=== PATIENT | male | born 1960 | race Caucasian/White ===

== ENCOUNTER 2017-10-09 17:42 | Inpatient (IN) | payer MEDICARE ==
[~2017-10-09] VITALS: Ht 177.8 cm; Wt 83.1 kg
[2017-10-09] MEDS ORDERED: METF500T4 PO (17:56)
[2017-10-09] MEDS ORDERED: OXYC10TA6 PO (17:56)
[2017-10-09] MEDS ORDERED: SODIUM CHLORIDE FLUSH 10ML SYR IVF ONE (18:30)
[2017-10-09] MEDS ORDERED: NITROGLYCERIN SINGLE TAB 0.4 MG SL PRN (18:30)
[2017-10-09 18:51] LABS: BASOPHILS # (AUTO) 0.05 x10^3/uL (0-0.1); BASOPHILS % (AUTO) 1 % (0-1); EOSINOPHILS # (AUTO) 0.09 x10^3/uL (0-0.4); EOSINOPHILS % (AUTO) 1 % (1-7); LYMPHOCYTES # (AUTO) 2.42 x10^3/uL (1-3.4); LYMPHOCYTES % (AUTO) 34 % (22-44); MD NO; MEAN CORPUSCULAR HGB CONC 34.6 g/dL (33.2-36.2); MEAN CORPUSCULAR VOLUME 86.6 fL (81-97); MEAN PLATELET VOLUME 7.8 fL (7.4-10.4); MONOCYTES # (AUTO) 0.57 x10^3/uL (0.2-0.8); MONOCYTES % (AUTO) 8 % (2-9); NEUTROPHILS # (AUTO) 4.02 x10^3/uL (1.8-6.8); NEUTROPHILS % (AUTO) 56 % (42-75); PLATELET COUNT 265 x10^3/uL (130-400); RED BLOOD COUNT 3.36 x10^6/uL (4.38-5.82); RED CELL DISTRIBUTION WIDTH 16.8 % (9.4-14.8)
[2017-10-09 18:58] LABS: ALANINE AMINOTRANSFERASE 38 U/L (12-78); ALBUMIN 3.7 g/dL (3.4-5.0); ANION GAP 16 mmol/L (5-15); CALCIUM 8.2 mg/dL (8.5-10.1); CHLORIDE 99 mmol/L (98-107)
[2017-10-09] MEDS ORDERED: ACETAMINOPHEN 325 MG TABLET ONE (19:00)
[2017-10-09] MEDS ORDERED: ACETAMINOPHEN 325 MG TABLET PO ONE (19:00)
[2017-10-09 19:03] LABS: ALKALINE PHOSPHATASE 115 U/L (45-117); BILIRUBIN,TOTAL 0.5 mg/dL (0.2-1.0); TOTAL PROTEIN 7.5 g/dL (6.4-8.2)
[2017-10-09 19:10] LABS: D-DIMER 1.84 ug/mlFEU (0.00-0.52); INTERNATIONAL NORMALIZED RATIO 1.12 (0.93-1.1); PROTHROMBIN TIME 11.6 Seconds (9.6-11.5)
[2017-10-09] MEDS ORDERED: SODIUM CHLORIDE FLUSH 10ML SYR IVF PRN (20:30)
[2017-10-09] MEDS ORDERED: OMNIPAQUE 350 MG/ML, 100ML BOTTLE ONE (20:49)
[2017-10-09] MEDS: SODIUM CHLORIDE 0.9% 1,000 ML IV SCH (21:06)
[2017-10-09] MEDS ORDERED: ONDANSETRON 2MG/ML, 2ML IVPush PRN (21:30)
[2017-10-09] MEDS ORDERED: TRAZODONE 50MG TABLET PO PRN (21:30)
[2017-10-09] MEDS ORDERED: hydrALAzine 20 MG/ML, 1ML IVPush PRN (21:30)
[2017-10-09] MEDS ORDERED: ACETAMINOPHEN 325 MG TABLET PO PRN (21:30)
[2017-10-09] MEDS: SODIUM BICARBONATE 8.4% 100 MEQ in DEXTROSE 5% 1,000 ML IV SCH (22:29)
[2017-10-09] MEDS ORDERED: morphine SULFATE/PF 0.5 MG/ML, 10ML IV PRN (22:30)
[2017-10-09] MEDS ORDERED: morphine SULFATE 10 MG/ML, 1ML ONE (22:34)
[2017-10-09] MEDS ORDERED: MORPHINE SULFATE 4 MG/ML, 1ML IVPush PRN (23:00)
[2017-10-09] MEDS ORDERED: LORazepam 2 MG/ML, 1ML IVPush PRN (23:00)
[2017-10-09] MEDS ORDERED: THIAMINE 100 MG, MVI ADULT 10 ML, FOLIC ACID 1 MG in D5%-0.9% NACL 1,000 ML IV SCH (23:00)
[2017-10-09] MEDS ORDERED: MORPHINE SULFATE 4 MG/ML, 1ML IVPush ONE (23:00)
[2017-10-09 23:23] LABS: TROPONIN I < 0.015 ng/mL (0.000-0.045)
[2017-10-10 00:02] VITALS: BP 133/77
[2017-10-10] MEDS: MORPHINE SULFATE 4 MG/ML, 1ML IVPush PRN ×2 (00:27→01:16)
[2017-10-10 01:45] LABS: AMPHETAMINE SCREEN, URINE Negative (Negative); BARBITURATE SCREEN, URINE Negative (Negative); BENZODIAZEPINE SCREEN, URINE Negative (Negative); CANNABINOID SCREEN, URINE Negative (Negative); COCAINE SCREEN, URINE Negative (Negative); METHADONE SCREEN, URINE Negative (Negative); OPIATE SCREEN, URINE Positive (Negative)
[2017-10-10] MEDS ORDERED: LORazepam 1MG TABLET PO PRN ×3 (02:00)
[2017-10-10] MEDS ORDERED: LORazepam 0.5MG TABLET PO PRN (02:00)
[2017-10-10] MEDS ORDERED: MORPHINE SULFATE 4 MG/ML, 1ML IVPush PRN (02:00)
[2017-10-10] MEDS ORDERED: LORazepam 2 MG/ML, 1ML IV PRN ×2 (02:00)
[2017-10-10] MEDS: LORazepam 2 MG/ML, 1ML IV PRN ×4 (02:01→18:19)
[2017-10-10 05:20] LABS: TRIGLYCERIDES 53 mg/dL (50-200); TROPONIN I < 0.015 ng/mL (0.000-0.045)
[2017-10-10] MEDS: SODIUM CHLORIDE 0.9% 1,000 ML IV SCH ×2 (05:25→09:15)
[2017-10-10] MEDS: SODIUM BICARBONATE 8.4% 100 MEQ in DEXTROSE 5% 1,000 ML IV SCH (05:26)
[2017-10-10 05:50] LABS: HEMOGLOBIN A1C 5.5 % (4.2-6.3)
[2017-10-10 07:27] VITALS: BP 130/79
[2017-10-10 11:43] VITALS: BP 146/80
[2017-10-10] MEDS: CHLORDIAZEPOXIDE 25 MG CAPSULE PO SCH ×3 (13:55→20:56)
[2017-10-10 16:49] VITALS: BP 126/77
[2017-10-10 19:26] VITALS: BP 127/66
[2017-10-10] MEDS ORDERED: methylPREDNISolone SOD SUCC 125 MG/2 ML IVPush ONE (20:30)
[2017-10-10] MEDS ORDERED: KETOROLAC 30 MG/1 ML IVPush ONE (20:30)
[2017-10-10] MEDS: FAMOTIDINE 20 MG/2 ML IVPush SCH (20:56)
[2017-10-10] MEDS: ACETAMINOPHEN 500 MG TABLET PO SCH (20:56)
[2017-10-10] MEDS: D5%-LACTATED RINGERS 1,000 ML IV SCH (21:47)
[2017-10-11 00:41] VITALS: BP 148/83
[2017-10-11] MEDS: LORazepam 2 MG/ML, 1ML IV PRN ×6 (02:44→23:37)
[2017-10-11] MEDS: ACETAMINOPHEN 500 MG TABLET PO SCH ×3 (04:59→23:09)
[2017-10-11] MEDS: D5%-LACTATED RINGERS 1,000 ML IV SCH ×2 (04:59→20:06)
[2017-10-11 07:39] VITALS: BP 142/80
[2017-10-11 07:48] LABS: ALBUMIN 3.2 g/dL (3.4-5.0); ANION GAP 11 mmol/L (5-15); CALCIUM 7.6 mg/dL (8.5-10.1); CHLORIDE 100 mmol/L (98-107)
[2017-10-11 07:51] LABS: ALANINE AMINOTRANSFERASE 30 U/L (12-78); ALKALINE PHOSPHATASE 106 U/L (45-117); BILIRUBIN,TOTAL 0.9 mg/dL (0.2-1.0); CREATININE 0.72 mg/dL (0.7-1.3); TOTAL PROTEIN 7.1 g/dL (6.4-8.2)
[2017-10-11] MEDS ORDERED: REGADENOSON 0.4 MG/5 ML SYRINGE ONE (08:17)
[2017-10-11] MEDS: FAMOTIDINE 20 MG/2 ML IVPush SCH ×2 (08:29→23:11)
[2017-10-11] MEDS: CHLORDIAZEPOXIDE 25 MG CAPSULE PO SCH ×3 (08:38→23:08)
[2017-10-11] MEDS: LORazepam 1MG TABLET PO PRN ×2 (11:19→16:45)
[2017-10-11] MEDS ORDERED: MAGNESIUM SULFATE PMX 4GM/100M 100 ML IV ONE (12:00)
[2017-10-11] MEDS: POTASSIUM CHLORIDE 20 MEQ TAB.ER.PRT PO SCH ×2 (12:27→16:51)
[2017-10-11 12:46] VITALS: BP 156/93
[2017-10-11 16:37] LABS: CLOSTRIDIUM DIFFICILE ANTIGEN NEGATIVE; CLOSTRIDIUM DIFFICILE TOXIN NEGATIVE (Negative)
[2017-10-11 20:41] VITALS: BP 148/77
[2017-10-11] MEDS: MAGNESIUM CHLORIDE 64 MG TABLET.DR PO SCH (23:09)
[2017-10-12] MEDS: LORazepam 2 MG/ML, 1ML IV PRN ×5 (00:54→06:49)
[2017-10-12 02:47] VITALS: BP 128/78
[2017-10-12] MEDS: D5%-LACTATED RINGERS 1,000 ML IV SCH ×2 (04:02→14:56)
[2017-10-12 06:40] VITALS: BP 132/68
[2017-10-12] MEDS ORDERED: ZIPRASIDONE 20 MG INJ IM ONE (07:30)
[2017-10-12] MEDS: MAGNESIUM CHLORIDE 64 MG TABLET.DR PO SCH ×2 (07:58→21:52)
[2017-10-12] MEDS: CHLORDIAZEPOXIDE 25 MG CAPSULE PO SCH ×3 (07:58→21:51)
[2017-10-12] MEDS: FAMOTIDINE 20 MG/2 ML IVPush SCH (07:58)
[2017-10-12] MEDS: ACETAMINOPHEN 500 MG TABLET PO SCH ×2 (07:59→18:03)
[2017-10-12] MEDS ORDERED: CHLORDIAZEPOXIDE 25 MG CAPSULE PO PRN ×3 (08:00)
[2017-10-12] MEDS ORDERED: CHLORDIAZEPOXIDE 10 MG CAPSULE PO PRN (08:00)
[2017-10-12] MEDS ORDERED: LORazepam 2 MG/ML, 1ML IV PRN (08:00)
[2017-10-12] MEDS: RIFAXIMIN 550 MG TABLET PO SCH ×2 (09:00→21:51)
[2017-10-12 09:32] LABS: ANION GAP 11 mmol/L (5-15); CALCIUM 8.3 mg/dL (8.5-10.1); CHLORIDE 103 mmol/L (98-107); CREATININE 0.88 mg/dL (0.7-1.3)
[2017-10-12 14:22] VITALS: BP 100/65
[2017-10-12 21:27] VITALS: BP 146/88
[2017-10-12] MEDS: FAMOTIDINE 20 MG TABLET PO SCH (21:51)
[2017-10-12 23:30] VITALS: BP 101/62
[2017-10-13] MEDS: ACETAMINOPHEN 500 MG TABLET PO SCH ×4 (00:16→16:23)
[2017-10-13] MEDS: D5%-LACTATED RINGERS 1,000 ML IV SCH ×3 (00:16→20:33)
[2017-10-13 02:02] VITALS: BP 108/68
[2017-10-13 07:55] LABS: ALANINE AMINOTRANSFERASE 26 U/L (12-78); ALBUMIN 3.3 g/dL (3.4-5.0); ANION GAP 7 mmol/L (5-15); CALCIUM 8.4 mg/dL (8.5-10.1); CHLORIDE 106 mmol/L (98-107)
[2017-10-13 07:58] LABS: ALKALINE PHOSPHATASE 105 U/L (45-117); BILIRUBIN,TOTAL 0.5 mg/dL (0.2-1.0); TOTAL PROTEIN 7.3 g/dL (6.4-8.2)
[2017-10-13] MEDS: CHLORDIAZEPOXIDE 25 MG CAPSULE PO SCH ×3 (08:49→20:32)
[2017-10-13] MEDS: FAMOTIDINE 20 MG TABLET PO SCH ×2 (08:55→20:32)
[2017-10-13] MEDS: MAGNESIUM CHLORIDE 64 MG TABLET.DR PO SCH ×2 (08:55→20:32)
[2017-10-13] MEDS: RIFAXIMIN 550 MG TABLET PO SCH ×2 (08:55→20:32)
[2017-10-13 09:55] VITALS: BP 130/87
[2017-10-13] MEDS ORDERED: MAGNESIUM SULFATE PMX 4GM/100M 100 ML IV ONE (12:30)
[2017-10-13] MEDS ORDERED: POTASSIUM CHLORIDE 20 MEQ TAB.ER.PRT PO ONE (12:30)
[2017-10-13 16:25] VITALS: BP 99/60
[2017-10-13 20:10] VITALS: BP 96/64
[2017-10-14] MEDS: ACETAMINOPHEN 500 MG TABLET PO SCH ×3 (00:08→16:04)
[2017-10-14 01:44] VITALS: BP 137/88
[2017-10-14] MEDS: D5%-LACTATED RINGERS 1,000 ML IV SCH ×2 (04:33→14:04)
[2017-10-14 06:54] VITALS: BP 138/84
[2017-10-14] MEDS: FAMOTIDINE 20 MG TABLET PO SCH ×2 (08:44→21:02)
[2017-10-14] MEDS: CHLORDIAZEPOXIDE 25 MG CAPSULE PO SCH (08:44)
[2017-10-14] MEDS: RIFAXIMIN 550 MG TABLET PO SCH ×2 (08:44→21:02)
[2017-10-14] MEDS: MAGNESIUM CHLORIDE 64 MG TABLET.DR PO SCH (08:44)
[2017-10-14 10:20] LABS: ANION GAP 3 mmol/L (5-15); CALCIUM 8.9 mg/dL (8.5-10.1); CHLORIDE 107 mmol/L (98-107); CREATININE 0.87 mg/dL (0.7-1.3)
[2017-10-14 13:23] VITALS: BP 102/63
[2017-10-14 18:32] VITALS: BP 136/82
[2017-10-14] MEDS ORDERED: CHLORDIAZEPOXIDE 25 MG CAPSULE PO SCH (21:00)
[2017-10-15] MEDS: ACETAMINOPHEN 500 MG TABLET PO SCH ×3 (00:13→16:07)
[2017-10-15 01:09] VITALS: BP 147/87
[2017-10-15] MEDS: D5%-LACTATED RINGERS 1,000 ML IV SCH (03:09)
[2017-10-15 07:22] VITALS: BP 92/56
[2017-10-15] MEDS ORDERED: MAGNESIUM SULFATE PMX 2GM/50ML 50 ML IV ONE (08:30)
[2017-10-15] MEDS: CHLORDIAZEPOXIDE 25 MG CAPSULE PO SCH ×2 (08:59→20:20)
[2017-10-15] MEDS: RIFAXIMIN 550 MG TABLET PO SCH ×2 (08:59→20:20)
[2017-10-15] MEDS: FAMOTIDINE 20 MG TABLET PO SCH ×2 (09:00→20:20)
[2017-10-15 13:20] VITALS: BP 138/84
[2017-10-15 18:59] VITALS: BP 131/81
[2017-10-16] MEDS: ACETAMINOPHEN 500 MG TABLET PO SCH ×3 (00:28→16:00)
[2017-10-16 01:02] VITALS: BP 109/71
[2017-10-16 06:39] VITALS: BP 155/92
[2017-10-16 07:33] LABS: ANION GAP 4 mmol/L (5-15); CALCIUM 9.2 mg/dL (8.5-10.1); CHLORIDE 108 mmol/L (98-107); CREATININE 0.86 mg/dL (0.7-1.3)
[2017-10-16] MEDS: RIFAXIMIN 550 MG TABLET PO SCH ×2 (08:45→20:14)
[2017-10-16] MEDS: FAMOTIDINE 20 MG TABLET PO SCH ×2 (08:45→20:14)
[2017-10-16] MEDS: CHLORDIAZEPOXIDE 25 MG CAPSULE PO SCH ×2 (08:45→20:14)
[2017-10-16] MEDS ORDERED: MAGN400T7 PO (11:43)
[2017-10-16] MEDS ORDERED: MAGNESIUM SULFATE PMX 4GM/100M 100 ML IV ONE (12:00)
[2017-10-16 13:40] VITALS: BP 119/76
[2017-10-16 21:02] VITALS: BP 104/62
[2017-10-17 01:13] VITALS: BP_SYST 120; BP_SYST 151; BP_DIAS 83; BP_DIAS 91
[2017-10-17] MEDS ORDERED: MAGNESIUM SULFATE PMX 2GM/50ML 50 ML IV ONE (06:30)
[2017-10-17 06:50] VITALS: BP 136/87
[2017-10-17] MEDS: RIFAXIMIN 550 MG TABLET PO SCH (08:26)
[2017-10-17] MEDS: ACETAMINOPHEN 500 MG TABLET PO SCH ×2 (08:26)
[2017-10-17] MEDS: CHLORDIAZEPOXIDE 25 MG CAPSULE PO SCH (08:26)
[2017-10-17] MEDS: FAMOTIDINE 20 MG TABLET PO SCH (08:26)
[2017-10-17 12:45] VITALS: BP 126/75
== END 2017-10-17 15:57 | disposition home or self-care (01) | DRG 441 ==
LOC: SUATTDRO 20:34 → ED 20:41 → EDIP 20:45 → INTOOBSV 20:45 → 5SO 23:53 → OBSVTOIN 10-10 14:39 → 5SO 10-11 17:08 → 4WST 10-12 23:59 → DCLOUNGE 10-17 14:58
PROVIDERS: ADMIT Hospitalist; ATTEND Hospitalist
DX: K72.90 Hepatic failure, unspecified without coma (principal); K85.90 Acute pancreatitis without necrosis or infection, unspecified; F10.231 Alcohol dependence with withdrawal delirium; E87.2 Acidosis; E83.42 Hypomagnesemia; D64.9 Anemia, unspecified; E11.9 Type 2 diabetes mellitus without complications; E78.00 Pure hypercholesterolemia, unspecified; E78.5 Hyperlipidemia, unspecified; E87.6 Hypokalemia; F17.210 Nicotine dependence, cigarettes, uncomplicated; I10 Essential (primary) hypertension; I25.2 Old myocardial infarction; R07.89 Other chest pain; Z79.82 Long term (current) use of aspirin; Z95.5 Presence of coronary angioplasty implant and graft; I25.119 Atherosclerotic heart disease of native coronary artery with unspecified angina pectoris
CPT/HCPCS: 36415; 71045; 71275; 78452; 80048; 80053; 80307; 82140; 82150; 83036; 83690; 83735; 83880; 84478; 84484; 85025; 85379; 85610; 85730; 87324; 93005; 93017; 96374; G0378; J1885; J2785; J3411; J3486; J7042; J7070; Q9967; A9502; C9898; J2060; J2930; J3475; J7030; J7121; S0028

== ENCOUNTER 2017-10-17 19:15 | Emergency (ER) | payer MEDICARE ==
[~2017-10-17] VITALS: Ht 177.8 cm; Wt 73.0 kg
[~2017-10-17 19:15] MED LIST: MAGN400T7 PO; METF500T4 PO; OXYC10TA6 PO
[2017-10-17] MEDS ORDERED: NALOXONE 0.4 MG/ML, 1ML ONE (19:29)
[2017-10-17] MEDS ORDERED: SODIUM CHLORIDE FLUSH 10ML SYR IVF ONE (19:30)
[2017-10-17] MEDS ORDERED: NALOXONE 0.4 MG/ML, 1ML IVPush ONE (19:30)
[2017-10-17] MEDS ORDERED: SODIUM CHLORIDE 0.9% 1,000ML IVBOLUS ONE (19:30)
[2017-10-17 19:52] LABS: BASOPHILS # (AUTO) 0.06 x10^3/uL (0-0.1); BASOPHILS % (AUTO) 1 % (0-1); EOSINOPHILS # (AUTO) 0.22 x10^3/uL (0-0.4); EOSINOPHILS % (AUTO) 3 % (1-7); LYMPHOCYTES % (AUTO) 12 % (22-44); MD NO; MEAN CORPUSCULAR HEMOGLOBIN 29.6 pg (27.5-34.5); MEAN CORPUSCULAR HGB CONC 33.2 g/dL (33.2-36.2); MEAN CORPUSCULAR VOLUME 89.4 fL (81-97); MEAN PLATELET VOLUME 9.1 fL (7.4-10.4); MONOCYTES # (AUTO) 0.72 x10^3/uL (0.2-0.8); MONOCYTES % (AUTO) 10 % (2-9); NEUTROPHILS # (AUTO) 5.36 x10^3/uL (1.8-6.8); NEUTROPHILS % (AUTO) 74 % (42-75); PLATELET COUNT 168 x10^3/uL (130-400); RED CELL DISTRIBUTION WIDTH 17.5 % (9.4-14.8)
[2017-10-17 20:02] LABS: ALANINE AMINOTRANSFERASE 30 U/L (12-78); ALBUMIN 3.2 g/dL (3.4-5.0); ANION GAP 11 mmol/L (5-15); CALCIUM 9.2 mg/dL (8.5-10.1); CHLORIDE 106 mmol/L (98-107); CREATININE 1.28 mg/dL (0.7-1.3); SALICYLATE LEVEL < 1.7 mg/dL (2.8-20.0)
[2017-10-17 20:04] LABS: INTERNATIONAL NORMALIZED RATIO 1.06 (0.93-1.1)
[2017-10-17 20:05] LABS: ALKALINE PHOSPHATASE 172 U/L (45-117); BILIRUBIN,TOTAL 0.3 mg/dL (0.2-1.0)
[2017-10-17 20:06] LABS: ACETAMINOPHEN < 2 mcg/mL (10-30)
[2017-10-17 20:55] LABS: AMPHETAMINE SCREEN, URINE Negative (Negative); BARBITURATE SCREEN, URINE Negative (Negative); BENZODIAZEPINE SCREEN, URINE Positive (Negative); CANNABINOID SCREEN, URINE Negative (Negative); COCAINE SCREEN, URINE Negative (Negative); METHADONE SCREEN, URINE Negative (Negative); OPIATE SCREEN, URINE Negative (Negative)
[2017-10-17 20:56] LABS: MICROSCOPIC INDICATED
[2017-10-17 21:03] LABS: CULTURE INDICATED? NO
[2017-10-18 04:29] VITALS: BP 144/86
== END 2017-10-18 04:30 | disposition home or self-care (01) ==
LOC: ED 10-18 03:24
DX: R10.13 Epigastric pain (principal); T42.4X5A Adverse effect of benzodiazepines, initial encounter; Y92.89 Other specified places as the place of occurrence of the external cause; F17.200 Nicotine dependence, unspecified, uncomplicated; Z79.899 Other long term (current) drug therapy
CPT/HCPCS: 36415; 70450; 80053; 80307; 80329; 81001; 82140; 82962; 83690; 85025; 85610; 85730; 93005; 96374; 99285; J2310; J7030; G0480